=== PATIENT | male | born 1940 | race African-American/Black ===

== ENCOUNTER 2017-11-15 12:35 | Emergency (ER) | payer MEDICARE, MEDICAID ==
[~2017-11-15] VITALS: Ht 180.3 cm; Wt 93.9 kg
[~2017-11-15 12:35] MED LIST: ATENOLOL PO; COLACE100 MG ORAL; DICLOXACILLIN500 MG PO; DILAUDID4 MG ORAL; DURAGESIC1 E1 TOPIC; FENTANYL 50 MCG/HR; FERROUS SULFAT325 MG ORAL; FUROSEMIDE20 M1 ORAL; K DUR PO; K-DUR20 MEQ ORAL; LIPITOR10 MG ORAL; LOW DOSE ASPIRI81 MG PO; LYRICA75 M1 ORAL; METOLAZONE; MOM30 ML ORAL; NEURONTIN100 MG ORAL; NORCO 10-325 T1 EACH ORAL; NORVASC5 MG ORAL; PERCOCET 10-321 EACH ORAL; POTASSIUM CHLO10 MEQ ORAL; RESTORIL7.5 MG ORAL; SIMVASTATIN5 MG ORAL; SOMA350 MG ORAL; TENORMIN50 MG ORAL; VICODIN 5-5001 EACH ORAL; dulcolax supp
[2017-11-15] MEDS ORDERED: oxyCODONE HCL/Acetaminophen 5/325mg ORAL ONE (13:15)
--- NOTE | 2017-11-15 13:28 | Emergency Room Report ---
History of Present Illness General Chief Complaint: Pain Source: Patient, Medical Record Present Illness HPI 77 YO Male presents to ED C/O 03/10 in severity left hip and lower back pain, tenderness and swelling x 2 days s/p mechanical trip and fall getting up from chair at [employer]. pt denies neck pain, denies hitting his head or LOC. Reports hx of back pain with spinal surgery. pt. reports that Tylenol does not help he has high tolerance and describes using fentanyl patches. Pt reports his pain is exacerbated with change of positions, standing and walking. Denies numbness tingling or loss of sensation or gross motor movements of the extremities, incontinence of bowel or bladder. Denies CP, Palpitations, AMS, dizziness, Changes in Vision, weakness or a sudden severe headache. Allergies: Coded Allergies: PROPOXYPHENE NAPSYLATE (Unverified Allergy, Severe, Anaphylaxis, 07/15/12) PROPOXYPHENE (Verified Allergy, Unknown, 09/11/10) PROPOXYPHENE HCL (Unverified Allergy, Unknown, 10/25/12) Patient History Past Medical History: see triage record Past Surgical History: other - back surgery Pertinent Family History: none Reviewed Nursing Documentation: PMH: Agreed; PSxH: Agreed Nursing Documentation-PMH Past Medical History: No History, Except For Hx Cardiac Problems: Yes Hx Hypertension: Yes Hx Asthma: Yes Hx Cancer: No Hx Gastrointestinal Problems: Yes Hx Neurological Problems: No Hx Cerebrovascular Accident: Yes Review of Systems All Other Systems: negative except mentioned in HPI Physical Exam Vital Signs Date Time Temp Pulse Resp B/P (MAP) Pulse Ox O2 Delivery O2 Flow Rate FiO2 11/15/17 12:41 97.9 58 18 145/79 95 Room Air 97.9 Sp02 EP Interpretation: reviewed, normal General Appearance: alert, GCS 15, non-toxic, moderate distress Head: normocephalic, atraumatic ENT: hearing grossly normal, normal voice Neck: full range of motion Respiratory: lungs clear, normal breath sounds, speaking full sentences Cardiovascular #1: regular rate, rhythm Musculoskeletal: back normal, normal range of motion, other - compensatory gait , using cane assistance, tender - TTP to the L-Spine midline, and paraspinal musculature, Lateral Left Hip TTP and upper left gluteal TTP, mild swelling to the posterior left hip. Neurologic: alert, oriented x3, responsive, motor strength/tone normal, sensory intact, speech normal, other - compensatory gait, using cane assistance , grossly normal Psychiatric: judgement/insight normal Skin: no rash, well hydrated Medical Decision Making PA Attestation Dr. Reid is my supervising Physician whom patient management has been discussed with. Diagnostic Impression: Primary Impression: Hip pain, left Additional Impressions: Low back pain Qualified Codes: M54.42 - Lumbago with sciatica, left side Exacerbation of chronic back pain Contusion of hip, left Qualified Codes: S70.02XA - Contusion of left hip, initial encounter Lumbar surgical wound fluid collection Qualified Codes: T81.89XA - Other complications of procedures, not elsewhere classified, initial encounter Intrathecal spinal catheter. ER Course 77 YO Male presents to ED C/O 03/10 in severity left hip and lower back pain, tenderness and swelling x 2 days s/p mechanical trip and fall getting up from chair at [employer]. pt denies neck pain, denies hitting his head or LOC. Reports hx of back pain with spinal surgery. pt. reports that Tylenol does not help he has high tolerance and describes using fentanyl patches. Pt reports his pain is exacerbated with change of positions, standing and walking. Denies numbness tingling or loss of sensation or gross motor movements of the extremities, incontinence of bowel or bladder. Denies CP, Palpitations, AMS, dizziness, Changes in Vision, weakness or a sudden severe headache. Ddx considered but are not limited to Fracture, dislocation, contusion, Sprain/ Strain/Spasm, Epidural abscess just to name a few. Vital signs: are WNL, pt. is afebrile H&PE are most consistent with musculoskeletal injury will perform imaging to r/ o fractures/dislocations. No evidence of infection ORDERS: - Ct Left hip , and L-Spine No contrast - see radiology reports. ED INTERVENTIONS: - Percocet - Pt. was given a copy of his [facility] CT reports, and instructed to take them with him to his follow up visit with Dr. Hauser. Gave pt. strict ED return precautions for worsening or new symptoms including but not limited to: fevers, chills, increased pain, neurological symptoms. DISCHARGE: At this time pt. is stable for d/c to home. Will provide printed patient care instructions, and any necessary prescriptions. Care plan and follow up instructions have been discussed with the patient prior to discharge. CT/MRI/US Diagnostic Results CT/MRI/US Diagnostic Results #1: Imaging Test Ordered: CT Left HIP- No Contrast Impression " " No fracture or malalignment. Lower lumbar spine hardware. Degenerative changes bilateral hips, worse on the left. Fluid collection left buttock subcutaneous soft tissue along with intrathecal wire transverses. All fluid collection midline posterior back with intrathecal wire enters to the posterior elements. Incidental findings: Prominent prostate. Atherosclerotic vascular disease. Moderate stool and gas in the colon." Per official radiology report- Please see report for specific details. CT/MRI/US Diagnostic Results #2: Imaging Test Ordered: CT L-Spine No Contrast Impression " Osteopenic. No acute fracture. L4-S1 posterior fixation hardware and screws are intact. L4-S1 intervertebral disc rafts. Large anterior osteophytes multilevels. Intrathecal catheter entering a L2-L3 extending superiorly in the spinal canal. Small amount of fluid in the left lower back and midline at the entrance of the intrathecal wires." Per official radiology report- Please see report for specific details. Last Vital Signs Date Time Temp Pulse Resp B/P (MAP) Pulse Ox O2 Delivery O2 Flow Rate FiO2 11/15/17 12:41 97.9 58 18 145/79 95 Room Air 97.9 Disposition: HOME, SELF-CARE Condition: Stable Scripts Lidocaine (Lidoderm) 1 Each Adh..patch 1 PATCH TOPIC DAILY, #30 PATCH 0 Refills Patch(es) may remain in place for up to 12 hours in any 24-hour period. Prov: Kathleen Leon 11/15/17 Oxycodone/Acetaminophen 5-325* (PERCOCET 5-325 MG TABLET*) 1 Each Tablet 1 TAB ORAL Q6H PRN for For Pain, #10 TAB 0 Refills Prov: Kathleen Leon 11/15/17 Referrals: NON PHYSICIAN (PCP) Patient Instructions: Back Pain, Adult, [id number], Contusion Additional Instructions: Take medications as directed. Follow up with a Primary Care Provider in 3-5 days, even if your symptoms have resolved. --Please review list of primary care clinics, if you do not already have a primary care provider Return sooner to ED if new symptoms occur, or current symptoms become worse. Do not drink alcohol, drive, or operate heavy machinery while taking [ ] as this may cause drowsiness. - Please note that this Emergency Department Report was dictated using [id number] automobile assembler technology software, occasionally this can lead to erroneous entry secondary to interpretation by the dictation equipment. Kathleen Leon Nov 15, 2017 13:28
[2017-11-15] MEDS ORDERED: PERCOCET 5-3251 EACH ORAL (15:30)
[2017-11-15] MEDS ORDERED: LIDODERM700 M1 TOPIC (15:30)
[2017-11-15 15:40] VITALS: BP 165/76
--- NOTE | 2017-11-16 11:36 | Diagnostic Imaging Report ---
Indication: Pain Technique: CT lumbar spine was performed utilizing automated exposure control without intravenous contrast material. Axial, sagittal and coronal images were generated. CT dose: Total DLP 1398.99 mGycm; [facility] vol 27.2,17.23 mGy Comparison: 10/27/2012 Findings: The bones are demineralized. There is evidence of prior surgery with posterior instrument fusion at L4-5 and L5-S1 by means of. Posterior rods and transpedicular screws at these levels. Additionally there are anterior fixation screws at L5-S1 as well as interbody high attenuation material L3-L4 and a disc grafts at L4-5 and L5-S1. These findings are similar compared to the prior exam. There is increased heterotopic bone formation about the posterior elements at L3-L4. There is increased sclerosis of the L3 posterior elements compared to the prior exam. There is no evidence of acute fracture or hardware-related complication. There are multilevel large anterior osteophytes and significant degenerative change. A degree of foraminal compromise is not excluded. There is central canal stenosis L5-S1. There is an intrathecal catheter in the posterior soft tissues on the left which enters about the level of L2-L3 and courses superiorly. A small amount of fluid around portions of the catheter in the subcutaneous tissues of the left back is noted which may represent seroma however correlate clinically to exclude infection. This catheter was not present on the prior exam. Atherosclerotic calcifications noted in the aorta which appears normal in size. A 1.5 cm low-attenuation structure is noted within the inferior pole of the left kidney and possibly represents a cyst. IMPRESSION: Significant degenerative change of the lumbosacral spine status post instrumented fusion at L4-5 and L5-S1, similar to prior exams. Interval placement of a intrathecal catheter which enters at the level of L2-L3. There is a small amount of fluid. Round portions of the catheter in the left subcutaneous soft tissues which may represent seroma. Correlate clinically to exclude the possibility of infection. Low-attenuation left lower pole renal lesion possibly representing a cyst. Confirmation with renal ultrasound recommended. This corresponds with the [facility] preliminary report. The CT scanner at [facility] is accredited by the [employer] and the scans are performed using protocols designed to limit radiation exposure to as low as reasonably achievable to attain images of sufficient resolution adequate for diagnostic evaluation.
--- NOTE | 2017-11-16 11:48 | Diagnostic Imaging Report ---
Indication: Pain Technique: CT left hip was performed utilizing automated exposure control without intravenous contrast material. Axial, sagittal and coronal images were generated. CT dose: Total DLP 1398.99 mGycm; CTDI vol 27.2,17.23 mGy Comparison: None Findings: Limited evaluation of the visceral structures of the pelvis given lack of IV contrast. The bones are demineralized. There is degenerative change of the bilateral hips manifested by joint space narrowing, subchondral sclerosis and subchondral cystic change as well as some marginal osteophyte formation. These findings are worse on the left. There is no evidence of acute hip the symphysis pubis and bilateral sacroiliac joints are preserved. Degenerative and postoperative change of the lumbosacral spine, as described on concurrent lumbar spine CT. There is a 5.7 x 1.3 cm fluid collection in the left buttock subcutaneous tissues along portions of the intrathecal catheter/wire. There is also a small subcutaneous fluid collection in the midline posterior back, again adjacent to the intrathecal catheter. These findings may be related to seroma however infection not entirely excluded. There are atherosclerotic vascular calcifications. Prostate is mildly enlarged. There is no evidence of bowel obstruction. 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 No acute hip fracture. Degenerative and postoperative changes of the lumbosacral spine. Small fluid collections in the left buttocks subcutaneous tissues and midline posterior back along the subcutaneous portions of the intrathecal wire/catheter. Findings may be related to seroma however the possibility of superimposed infection not entirely excluded. Correlate clinically. This corresponds with the [facility] preliminary report. The CT scanner at [facility] is accredited by the [employer] and the scans are performed using protocols designed to limit radiation exposure to as low as reasonably achievable to attain images of sufficient resolution adequate for diagnostic evaluation.
== END 2017-11-15 15:40 | disposition home or self-care (01) ==
LOC: EMR 12:56
DX: S70.02XA Contusion of left hip, initial encounter (principal); W07.XXXA Fall from chair, initial encounter; Y92.22 Religious institution as the place of occurrence of the external cause; M54.5 Low back pain; G89.29 Other chronic pain; I10 Essential (primary) hypertension; J45.909 Unspecified asthma, uncomplicated; Z86.73 Personal history of transient ischemic attack (TIA), and cerebral infarction without residual deficits; Z88.8 Allergy status to other drugs, medicaments and biological substances
CPT/HCPCS: 72131; 99284